=== PATIENT | female | born 1955 | race Caucasian/White ===

== ENCOUNTER → 2016-03-09 | Outpatient (CLI) | payer OTHER ==
[~2016-03-09] MED LIST: ASPI-586 PO; CALC-656 PO; HYDR-3729 PO; IBUP-792 PO; KRIL1CAP18 PO; LISI-552 PO; OMG1KC PO; TIMO10DR12 OU
--- NOTE | 2016-03-09 19:15 | Diagnostic Imaging Report ---
INDICATION: Digital mammogram bilateral screening. This study was compared to the prior exam of 02/26/15, 10/26/13 and 10/30/11. At this time, there are no current complaints. The current study was also evaluated with a Computer Aided Detection (CAD) system. FINDINGS: The fibroglandular tissue in both breasts is heterogeneously dense. This does limit the sensitivity of this exam. Overall, there does not appear to have been any significant change when compared to the prior study. No primary or secondary sign of malignancy is noted. The nodular densities in the lateral retroareolar region of the right breast seen previously is again evident and no different. IMPRESSION: There is no radiographic evidence for malignancy. ACR BI-RADS Category 1: Negative. Result letter will be mailed to the patient. Note: At least 10% of breast cancer is not imaged by mammography. Dictated by: Dictated on workstation # [id number]
== END ==
LOC: RAD 09:42
PROVIDERS: ATTEND Family Medicine
DX: Z12.31 Encounter for screening mammogram for malignant neoplasm of breast (principal)

== ENCOUNTER → 2018-06-24 | Outpatient (CLI) | payer OTHER ==
--- NOTE | 2018-06-24 09:42 | Diagnostic Imaging Report ---
Indication: Routine screening. Comparison is made prior mammogram from 03/09/2016 and 02/26/2015. 2-D and 3-D bilateral screening mammography was performed with CAD. Scattered fibroglandular densities are identified bilaterally. Multiple circumscribed nodular densities are identified in the right breast retroareolar in the lateral region. There is a lobulated mass just lateral to the nipple on CC view in the retroareolar region which has increased in size. This most likely represents enlarging cyst. Further evaluation ultrasound is recommended for confirmation. No suspicious mass is seen. There are benign calcifications. No malignant-appearing microcalcifications are seen. Axillae are unremarkable. Impression: Enlarging bilobed circumscribed mass in the retroareolar and slightly outer right breast. This most likely represents an enlarging cyst but confirmation with ultrasound is recommended BI-RADS 0 ACR BI-RADS Category 0: Incomplete. (Needs additional imaging evaluation). Result letter will be mailed to the patient. Note: At least 10% of breast cancer is not imaged by mammography. Dictated by: Dictated on workstation # [id number]
== END ==
LOC: RAD 07:45
PROVIDERS: ATTEND Family Medicine
DX: Z12.31 Encounter for screening mammogram for malignant neoplasm of breast (principal); N63.10 Unspecified lump in the right breast, unspecified quadrant
CPT/HCPCS: 77067

== ENCOUNTER → 2018-08-28 | Outpatient (CLI) | payer OTHER ==
--- NOTE | 2018-08-28 10:39 | Diagnostic Imaging Report ---
INDICATION: Enlarging mass in the right breast. COMPARISON: Correlation is made with the screening mammogram from 06/24/2018. Comparison is also made with right breast ultrasound dating back to 2006. FINDINGS: Sonographic interrogation of the right breast was performed. There is a bilobed mass at the 9 o'clock location measuring 16 mm x 14 mm x 10 mm. There is some intracystic echogenicity present. No internal vascularity is seen. A smaller cyst adjacent to this is seen measuring 10 mm x 5 mm. Densities account for the mammographic densities. No other abnormalities are detected. IMPRESSION: A right breast cyst at the 9 o'clock location corresponds to the mammographic densities. The bilobed mass has been present for many years. There is an echogenic intracystic component which could represent some organized secretions or blood clot. Even so, close followup and repeat right breast ultrasound in 4-6 months is recommended to confirm stability. Cyst aspiration or biopsy could also be performed. ACR BI-RADS Category 3: Probably benign findings. Dictated by: Dictated on workstation # [id number]
== END ==
LOC: RAD 07:48
PROVIDERS: ATTEND Family Medicine
DX: N60.01 Solitary cyst of right breast (principal); N63.10 Unspecified lump in the right breast, unspecified quadrant

== ENCOUNTER → 2019-02-27 | Outpatient (CLI) | payer OTHER ==
--- NOTE | 2019-02-27 15:06 | Diagnostic Imaging Report ---
INDICATION: Right breast cyst. Patient presents for 6 month followup. Correlation is made with prior exam from 08/28/2018. Bilobed cystic mass at the 9 o'clock location of the right breast is again noted measuring 1.7 x 1.1 x 1.0 cm, stable when compared with prior exam. Previously noted intracystic nodular component persists but appears to be less prominent on today's study. A separate cyst adjacent to this retroareolar measures approximately 10 mm x 6 mm, stable. No new masses seen. IMPRESSION: BI-RADS Category 3 Stable right breast ultrasound. Bilobed cystic lesion with intracystic nodular component is stable. The nodular intracystic component appears slightly less prominent on today's study. Even so, followup right breast ultrasound in 6 months is recommended to show continued stability. Dictated by: Dictated on workstation # [id number]
== END ==
LOC: RAD 13:11
PROVIDERS: ATTEND Family Medicine
DX: N60.01 Solitary cyst of right breast (principal); N63.10 Unspecified lump in the right breast, unspecified quadrant

== ENCOUNTER 2022-04-13 12:09 | Outpatient (CLI) | payer MEDICARE ==
[~2022-04-13] VITALS: Ht 157.5 cm; Wt 70.3 kg
[~2022-04-13 12:09] MED LIST changes: -LISI-552 PO; +LISI20TA26 PO
[2022-04-13] MEDS ORDERED: HYDR12.56 PO (13:24)
[2022-04-13] MEDS ORDERED: TURM500T PO (13:24)
[2022-04-13] MEDS ORDERED: [UNRECOGNIZED DRUG - CODE] PO (13:24)
[2022-04-13] MEDS ORDERED: DOCU-143 PO (13:24)
[2022-04-13] MEDS ORDERED: MELO10CA3 PO (13:24)
[2022-04-13] MEDS ORDERED: LEVO5TAB28 PO (13:24)
[2022-04-13] MEDS ORDERED: OMEG-34 PO (13:24)
[2022-04-13] MEDS ORDERED: AMLO-250 PO (13:24)
[2022-04-13] MEDS ORDERED: ROSU5TAB13 PO (13:24)
[2022-04-13] MEDS ORDERED: CALC-308 PO (13:24)
[2022-04-13] MEDS ORDERED: MONT-40 PO (13:24)
== END 2022-04-13 13:34 | disposition home or self-care (01) ==
LOC: PREOP 12:09
PROVIDERS: ATTEND Surgery
DX: Z01.818 Encounter for other preprocedural examination (principal)

== ENCOUNTER → 2022-05-02 | Outpatient (CLI) | payer MEDICARE ==
[~2022-05-02] MED LIST changes: +AMLO-250 PO; +CALC-308 PO; +DOCU-143 PO; +HYDR12.56 PO; +LEVO5TAB28 PO; +MELO10CA3 PO; +MONT-40 PO; +OMEG-34 PO; +ROSU5TAB13 PO; +TURM500T PO; +[UNRECOGNIZED DRUG - CODE] PO
--- NOTE | 2022-05-02 08:45 | Diagnostic Imaging Report ---
EXAMINATION: CT chest without contrast. TECHNIQUE: Multiple contiguous axial images were obtained through the chest without the use of intravenous contrast. All CT scans use one or more of the following dose optimizing techniques: automated exposure control, MA and/or KvP adjustment based on patient size and exam type or iterative reconstruction. HISTORY: Pulmonary nodule evaluation COMPARISON: None available. FINDINGS: Thyroid: The thyroid is normal. Mediastinum: Heart size is normal without significant pericardial effusion. Calcifications of the aorta and coronary vessels. Thoracic aorta is normal in caliber. No suspicious lymphadenopathy. Lungs and airways: There are mild background emphysematous changes of the lungs without consolidation, pleural effusion, or pneumothorax. There is a 1.6 x 1.3 cm partially calcified granuloma within the left upper lobe. There are additional tiny subcentimeter micronodules within the right lung apex measuring up to 0.3 cm on (series 3 image 25). The airways are normal. Upper abdomen: The subphrenic structures are normal. Musculoskeletal: No suspicious osseous lesion or compression fracture. A 2.1 cm right-sided breast lesion which was previously evaluated with ultrasound on 02/27/2019. IMPRESSION: 1. Calcified granuloma within the left upper lobe measuring up to 1.6 cm. Additional subcentimeter micronodules within the right upper lobe measuring up to 0.3 cm. 2. A right breast lesion which may have increased in size from 02/27/2019. Recommend continued evaluation with mammography and/or ultrasound as indicated. Dictated by: Dictated on workstation # [id number]
== END ==
LOC: RAD 07:46
PROVIDERS: ATTEND Nurse Practitioner Family
DX: J84.10 Pulmonary fibrosis, unspecified (principal); R91.8 Other nonspecific abnormal finding of lung field; N64.9 Disorder of breast, unspecified
CPT/HCPCS: 71250

== ENCOUNTER 2022-05-03 12:11 | Day surgery (SDC) | payer MEDICARE, OTHER ==
[~2022-05-03] VITALS: Ht 158 cm; Wt 70.3 kg
[2022-05-03] VITALS (7 sets, daily range): BP systolic 89–157; BP diastolic 51–64
[2022-05-03] MEDS ORDERED: LACTATED RINGERS 1,000 ML IV STA (12:15)
[2022-05-03] MEDS ORDERED: LIDOCAINE JELLY 2% 6 ML SYRINGE MM PRN (12:15)
[2022-05-03] MEDS ORDERED: LIDOCAINE JELLY 2% 6 ML SYRINGE ONE (12:39)
--- NOTE | 2022-05-03 12:51 | Progress Note-Pre Operative ---
Pre-Operative Progress Note Date of Available H&P: May 03, 2022 Date H&P Reviewed: May 03, 2022 Time H&P Reviewed: 12:00 History & Physical: No changes noted Pre-Operative Diagnosis: screening o OREN FPEIFFER MD May 03, 2022 12:50
--- NOTE | 2022-05-03 12:52 | Discharge Inst-Surgical ---
D/C Lap Instructions-MARGARETTE Follow Up Activity as tolerated High Fiber Diet 25g or more per day Avoid Alcohol, Caffeine, Spicy [place] and Acid foods. Drink 64 fluid oz or more of fluids per day. Symptoms to Report: Fever over 101 degree F, Nausea/Vomiting If any problems/questions: Contact your physician or go to Emergency Room OREN PFEIFFER MD May 03, 2022 12:51
[2022-05-03] MEDS ORDERED: ONDANSETRON 4 MG/2 ML (SDV) Z0FRAN IVP PRN (13:00)
[2022-05-03] MEDS ORDERED: ONDANSETRON 4 MG (ZOFRAN) ORAL DISSOLVE TAB PO PRN (13:00)
[2022-05-03] MEDS ORDERED: PROPOFOL INJECTION 50 ML IV ONE (13:26)
--- NOTE | 2022-05-03 14:35 | Progress Note-Post Operative ---
Post-Operative Progess Note Surgeon (s)/Chief Technician (s) Surgeon OREN PFEIFFER MD Chief Technician: none Pre-Operative Diagnosis screening colo Post-Operative Diagnosis mild stage 1-2 ext and int hemorrhoids, severe diverticulosis sigmoid/ascending/transverse colon. Procedure & Operative Findings Date of Procedure 05/03/22 Procedure Performed/Findings colonoscopy. Anesthesia Type mac Estimated Blood Loss Estimated blood loss (mL): minimal Specimens/Packing Specimens Removed none OREN PFEIFFER MD May 03, 2022 14:35
--- NOTE | 2022-05-03 20:11 | OPERATIVE REPORT ---
DATE OF SERVICE: 05/03/2022 ATTENDING PRIMARY CARE PHYSICIAN: Chasidy Dutton DO PREOPERATIVE DIAGNOSIS: Screening colonoscopy. POSTOPERATIVE DIAGNOSES: Chronic stage II external and internal hemorrhoids, severe sigmoid and descending colonic diverticulosis. PROCEDURE: Colonoscopy. SURGEON: Oren Pfeiffer MD ANESTHESIA: Monitored anesthesia care. ESTIMATED BLOOD LOSS: Minimal. FINDINGS: Chronic stage II, external and internal hemorrhoids, severe sigmoid and descending colonic diverticulosis. DISPOSITION: The patient tolerated the procedure well. INDICATIONS: The patient is a 67-year-old female in need of a screening colonoscopy. Her last colonoscopy was approximately 10 years ago and at that time, she was found to have significant diverticulosis, encompassing transverse, descending and sigmoid colon as well as mild hemorrhoids. She states that she has had some issues with constipation and does take some fiber; however, not enough on a daily basis. DESCRIPTION OF PROCEDURE: The patient was brought to the endoscopy suite and laid in the left lateral decubitus position. After adequate IV pain and sedative medications and monitored anesthesia care, a digital rectal examination was performed. Chronic stage II, external and internal hemorrhoids were identified, which were not actively edematous nor inflamed and no bleeding. Normal sphincter tone was felt and there were no palpable masses. The endoscope was then intubated into the anus, rectum gently insufflated. The endoscope was then advanced through the valves of [place] of the rectum with no polyps or any neoplasms identified. We then proceeded through the sigmoid colon where severe diverticulosis identified. This continued throughout the descending as well as part of the transverse colon as well. There were no mucosal inflammatory changes to indicate any active diverticulitis. The endoscope was then advanced through the remainder of the transverse, ascending colon to the cecum, which were normal. There were no polyps or any neoplasms identified throughout the colon or rectum. The endoscope was then slowly withdrawn while taking a second look and suctioning of residual air with no additional findings. The patient tolerated the procedure well. We will recommend continued medical management with a high-fiber diet through a fiber supplementation mean, which should equal or exceed 25-30 grams daily as well as significant amounts of water with the endpoint being soft consistency stools on a daily basis. The goal will be to prevent any episodes of diverticulitis as well as more severe complications of diverticulitis including major bleeding, abscess formation as well as a perforation. No polyps were identified. She does not have a family history of colon cancer and if she is asymptomatic, she does not need another colonoscopy for another 10 years. Job ID: [id number] DocumentID: [id number] Dictated Date: 05/03/2022 14:17:52 Customer Counter Associate Date: 05/03/2022 20:09:00 Dictated By: OREN PFEIFFER MD
== END 2022-05-03 15:42 | disposition home or self-care (01) ==
LOC: ENDO 12:11
PROVIDERS: ATTEND Surgery
DX: Z12.11 Encounter for screening for malignant neoplasm of colon (principal); K64.1 Second degree hemorrhoids; K64.4 Residual hemorrhoidal skin tags; K57.30 Diverticulosis of large intestine without perforation or abscess without bleeding; Z87.891 Personal history of nicotine dependence

== ENCOUNTER → 2022-05-17 | Outpatient (CLI) | payer MEDICARE, OTHER ==
--- NOTE | 2022-05-17 13:30 | Diagnostic Imaging Report ---
INDICATION: Abnormal CT showing an enlarging mass. Study is performed for further evaluation. Correlation is made with prior mammogram from 06/24/2018 and 03/09/2016. Unilateral right 2-D and 3-D diagnostic mammography was performed with CAD. CAD is utilized. The current study was also evaluated with a Computer Aided Detection (CAD) system. Right breast is heterogeneously dense, limiting sensitivity of mammography. There are numerous circumscribed masses in the right breast, presumably cyst. Bilobed mass in the retroareolar slightly outer right breast does appear to be a larger when compared with prior exam. This may represent enlarging cyst. No suspicious microcalcifications are seen. Right axilla is unremarkable. IMPRESSION: BI-RADS 0 Enlarging bilobed mass in the retroareolar right breast, likely enlarging cyst. Further evaluation with ultrasound is recommended and will be performed today. ACR BI-RADS Category 0: Incomplete. (Needs additional imaging evaluation). Result letter will be mailed to the patient. Note: At least 10% of breast cancer is not imaged by mammography. Dictated by: Dictated on workstation # [id number]
--- NOTE | 2022-05-17 19:08 | Diagnostic Imaging Report ---
INDICATION: Enlarging right breast nodule noted on recent CT chest. Study is performed for further evaluation. COMPARISON: Correlation is made with diagnostic mammogram from earlier the same day and prior right breast ultrasound from 02/27/2019. FINDINGS: The bilobed cystic mass at the 9:00 location in right breast 1-2 cm from the nipple is again noted, slightly larger in size measuring 2.0 x 1.0 x 1.8 cm compared with 1.7 x 1.1 x 1.0 cm. This again does show some internal debris and internal nodularity. No abnormal vascularity to the nodule is identified. IMPRESSION: Slight increase in size of a bilobed predominantly cystic mass in right breast at the 9:00 location, 1-2 cm from from the nipple when compared with exam from 02/27/2019. This does contain some internal debris as well as intracystic nodular component. Due to the slight increase in size and the nodular component, cyst aspiration with cytologic evaluation of the fluid would be recommended. If this is not performed, close interval follow-up right breast ultrasound in six months would be recommended to show continued stability. BI-RADS Category 4 Dictated by: Dictated on workstation # [id number]
== END ==
LOC: RAD 12:26
PROVIDERS: ATTEND Nurse Practitioner Family
DX: N63.10 Unspecified lump in the right breast, unspecified quadrant (principal)
CPT/HCPCS: 76642; 77065; G0279

== ENCOUNTER → 2022-05-31 | Outpatient (CLI) | payer MEDICARE ==
[~2022-05-31] VITALS: Ht 157.5 cm; Wt 72.7 kg
[~2022-05-31] MED LIST changes: +LIDOCAINE 1% INJ 10 ML VIAL INJ ONE
--- NOTE | 2022-05-31 11:05 | Diagnostic Imaging Report ---
INDICATION: Complex right breast cyst. Patient presents for cyst aspiration and then biopsy. Patient brought to the sonographic suite placed on table in the supine position. Ultrasound imaging of the right breast was performed to evaluate appropriate entry site. Right breast was then prepped and draped in usual sterile fashion. Small amount of 1% lidocaine was utilized for local anesthesia. 18-gauge needle was advanced into the complex cyst at the 9 o'clock location of the right breast 1 to 2 cm from the nipple. Approximately 2 mL of brown-tinged serous fluid was aspirated. There was near complete collapse of the cyst. Needle was removed. IMPRESSION: Right breast cyst aspiration. Fluid will be sent for cytologic evaluation. Dictated by: Dictated on workstation # [id number]
--- NOTE | 2022-05-31 11:07 | Diagnostic Imaging Report ---
INDICATION: Complex right breast cyst. Patient presents for ultrasound-guided core biopsy. Patient brought to the sonographic suite and placed in the supine position. Ultrasound imaging of the right breast was performed to evaluate appropriate entry site. The right breast was then prepped and draped usual sterile fashion. Small amount of 1% lidocaine was utilized for local anesthesia. A total of approximately 4 core biopsies were obtained of the complex cystic lesion of the right breast 9 o'clock location utilizing a 14-gauge Achieve needle. A marker clip was then deployed. Hemostasis was obtained using manual compression. Patient tolerated the procedure well and left the department in stable condition. IMPRESSION: Successful ultrasound-guided core biopsy of the complex mass at the 9 o'clock location of the right breast. Pathology results are currently pending. Dictated by: Dictated on workstation # [id number]
== END ==
LOC: RAD 10:15
PROVIDERS: ATTEND Family Medicine
DX: N60.01 Solitary cyst of right breast (principal)
CPT/HCPCS: 19083